=== PATIENT | male | born 1975 | race African-American/Black ===

== ENCOUNTER 2020-01-16 15:46 | Emergency (ER) | payer OTHER, SELFPAY ==
[2020-01-16 15:59] VITALS: BP 122/73; PULSE 71; RESP 16; TEMP 37.3; O2SAT 100
--- NOTE | 2020-01-16 16:01 | ED.GENADULT ---
HPI - General Adult General Chief complaint: Wound/Laceration Stated complaint: Staple removal Time Seen by Provider: 01/16/20 16:03 History of Present Illness HPI narrative: 44-year-old male presents with concern for staple removal. Reports 1 week ago he had prisca placed in his forehead nursing that she [facility]. Reports routine healing, denies drainage, swelling, pain, redness. Denies headache MD complaint: Staple removal Related Data Home Medications Medication Instructions Recorded Confirmed naproxen 01/16/20 Allergies Allergy/AdvReac Type Severity Reaction Status Date / Time No Known Allergies Allergy Unverified 06/03/15 12:18 Review of Systems Review of Systems: Narrative: CONSTITUTIONAL: Denies malaise, chills, sweats, or fever. SKIN: Reports healing laceration with intact prisca to forehead. Denies redness, swelling, pain, drainage NEUROLOGIC: Denies headache. [facility] Family History Family History (Updated 05/31/15 @ 10:21 by DOCTOR UNKNOWN) Other Diabetes mellitus Social History Social History Smoking status: Never smoker Alcohol intake: current Exam Narrative: Exam Narrative: GENERAL: Well-appearing, well-nourished, and in no acute distress. HEAD: Normocephalic EYES: PERRLA, conjunctivae clear ENT: Mucous membranes moist. NECK: Supple. CHEST: No respiratory distress. Speaks in full sentences. HEART: Regular rate and rhythm. SKIN: Warm, dry, no rash. Well approximated healing laceration noted to the mid forehead with no surrounding induration, erythema, edema, 6 intact prisca noted. NEURO: Alert and oriented x3. PSYCH: Normal mood and affect Course Vital Signs Vital signs: Vital Signs Temperature 99.1 F 01/16/20 15:59 Pulse Rate 71 01/16/20 15:59 Respiratory Rate 16 01/16/20 15:59 Blood Pressure 122/73 01/16/20 15:59 Pulse Oximetry 100 01/16/20 15:59 Temperature 99.1 F 01/16/20 15:59 Pulse Rate 71 01/16/20 15:59 Respiratory Rate 16 01/16/20 15:59 Blood Pressure 122/73 01/16/20 15:59 Pulse Oximetry 100 01/16/20 15:59 Medical Decision Making MDM Narrative Medical decision making narrative: Verbal consent was obtained. Wound well approximated, no erythema, induration, or discharge noted. Sick prisca completely removed in a sterile fashion. Patient tolerated procedure well, no complications. Patient advised to look for and return for any signs of infection such as redness, swelling, discharge, or worsening pain. Antibiotic ointment applied Vital Signs Vital Signs: Vital Signs Temperature 99.1 F 01/16/20 15:59 Pulse Rate 71 01/16/20 15:59 Respiratory Rate 16 01/16/20 15:59 Blood Pressure 122/73 01/16/20 15:59 Pulse Oximetry 100 01/16/20 15:59 Temperature 99.1 F 01/16/20 15:59 Pulse Rate 71 01/16/20 15:59 Respiratory Rate 16 01/16/20 15:59 Blood Pressure 122/73 01/16/20 15:59 Pulse Oximetry 100 01/16/20 15:59 Discharge Plan Discharge Clinical Impression: Encounter for staple removal Patient Disposition: Home, Self-Care Condition: Stable Additional Instructions: AFTER the prisca are removed: Clean your wound as directed. Carefully wash your wound with soap and water. Pat the area dry with a clean towel. Protect your wound. Your wound can swell, bleed, or split open if it is stretched or bumped. You may need to wear a bandage that supports your wound until it is completely healed. How to minimize a scar: After sutures are removed, keep your scar out of the sun. Use sunblock if your wound is exposed to the sun. You may use OTC silicone pad and/or scar massage with ointment (for 10-15 min a day) after one month. Talk to your doctor if you think you aredeveloping a keloid. Prescriptions: No Action naproxen 500 mg tablet RF: 0 Follow-up/Referrals: PHYSICIAN,BODY DESIGN CHECKER [Primary Care Provider] - Time of Disposition: 16:05
== END 2020-01-16 16:06 | disposition home or self-care (01) ==
PROVIDERS: Emergency Provider Nurse Practitioner
DX: S01.81XD Laceration without foreign body of other part of head, subsequent encounter (principal); X58.XXXD Exposure to other specified factors, subsequent encounter
CPT/HCPCS: 99211; G0463

== ENCOUNTER 2020-09-06 18:49 | Emergency (ER) | payer OTHER, SELFPAY ==
[2020-09-06 19:00] VITALS: BP 133/89; PULSE 65; RESP 16; TEMP 36.8; O2SAT 99
--- NOTE | 2020-09-06 19:06 | ED.SKABFB ---
HPI - Skin/Abscess/Foreign Bdy General Chief complaint: Skin/Abscess/Foreign Body Stated complaint: Cyst on back of head Time Seen by Provider: 09/06/20 19:06 Source: patient and RN notes reviewed Mode of arrival: ambulatory History of Present Illness HPI narrative: 45-year-old male presents to the [facility] with complaints of a cyst to the posterior head. Patient reports getting his haircut for the first time in many years and noted he had this growth on the back of his head. It is painless. No redness or tenderness. No signs of infection. Hair growth is normal on the growth. Related Data Home Medications Medication Instructions Recorded Confirmed No Home Medications 09/06/20 09/06/20 Allergies Allergy/AdvReac Type Severity Reaction Status Date / Time No Known Allergies Allergy Verified 09/06/20 19:13 Review of Systems Review of Systems: Narrative: CONSTITUTIONAL: Denies fever, chills, or sweats. EYES: Denies visual changes, redness, or discharge. ENT: Denies rhinorrhea, congestion, sore throat, or otalgia. CARDIOVASCULAR: Denies chest pain, palpitations, or edema. RESPIRATORY: Denies cough or dyspnea. GASTROINTESTINAL: Denies abdominal pain, nausea, vomiting, or diarrhea. GENITOURINARY: Denies dysuria or hematuria. SKIN: Denies rash or itching. Growth posterior head MUSCULOSKELETAL: Denies back pain, joint pain, or myalgia. NEUROLOGIC: Denies headache, numbness, or weakness. PSYCHIATRIC: Denies anxiety or depression. All other systems reviewed are negative, except as documented in HPI. PMFSH Family History Family History Other Diabetes mellitus Social History Social History Smoking status: Never smoker Alcohol intake: current Comments At the time of my signature, I reviewed and agree with the nursing past medical, surgical, social, and family history. There is no relevant family history pertinent to the patient complaint. Exam Narrative: Exam Narrative: GENERAL: This is a well-nourished, well-developed patient, in no apparent distress. HEAD: normocephalic, atraumatic. EYES: PERRL. EARS: External ears normal CARDIOVASCULAR: Regular rate and rhythm without murmurs, gallops, or rubs. RESPIRATORY: Clear to auscultation. Breath sounds equal bilaterally. No wheezes, rales, or rhonchi. GASTROINTESTINAL: Abdomen soft, non-tender SKIN: warm, intact with no suspicious lesions or rash, good texture and turgor. Growth without signs of infection measuring 5 x 5-1/2 cm. NEURO: awake, alert, and oriented to person, place and time. There were no obvious focal neurologic abnormalities. EXTREMITIES:No joint tenderness, effusion, or edema noted. BACK: Nontender without deformity Course Course Emergency Course: Discussed with patient that this is probably a lipoma. Patient wants to make sure there is no pus in it. Agreed to try a needle aspiration. Area cleaned with Betadine and 18-gauge needle attempted needle aspiration with nothing that returned. No signs of infection. Vital Signs Vital signs: Vital Signs Temperature 98.2 F 09/06/20 19:00 Pulse Rate 65 09/06/20 19:00 Respiratory Rate 16 09/06/20 19:00 Blood Pressure 133/89 09/06/20 19:00 Pulse Oximetry 99 09/06/20 19:00 Temperature 98.2 F 09/06/20 19:00 Pulse Rate 65 09/06/20 19:00 Respiratory Rate 16 09/06/20 19:00 Blood Pressure 133/89 09/06/20 19:00 Pulse Oximetry 99 09/06/20 19:00 Reviewed MDM - Skin/Abscess/Foreign Bdy Differential Diagnosis Differential diagnosis: Likely abscess of skin or subcutaneous tissue, viral exanthem, cellulitis and other (Lipoma) Critical Care Time Critical Care Time Critical Care Time: No Discharge Plan Discharge Clinical Impression: Lipoma Qualifiers: Lipoma location: head Qualified Code(s): D17.0 - Benign lipomatous neoplasm of skin and subcutaneous tissue of head, face
== END 2020-09-06 19:30 | disposition home or self-care (01) ==
PROVIDERS: Emergency Provider Nurse Practitioner; PCP Emergency Medicine
DX: D17.0 Benign lipomatous neoplasm of skin and subcutaneous tissue of head, face and neck (principal)
CPT/HCPCS: 99211; G0463

== ENCOUNTER → 2020-10-01 05:10 | Outpatient (CLI) | payer OTHER, SELFPAY ==
[2020-10-01 19:22] LABS: SARS-CoV-2 RNA PCR Negative
== END ==
PROVIDERS: PCP Emergency Medicine; Visit Provider Surgery
DX: Z01.812 Encounter for preprocedural laboratory examination (principal); Z20.822 Contact with and (suspected) exposure to COVID-19
CPT/HCPCS: C9803; U0003; U0005

== ENCOUNTER 2020-10-04 01:04 | Day surgery (SDC) | payer OTHER, SELFPAY ==
[2020-09-23 09:24] VITALS: BMI 22.3
[2020-10-04] MEDS: LACTATED RINGERS 1,000 ML 30 ML IV CONT (11:30)
[2020-10-04 11:40] VITALS: BP 117/74; PULSE 72; RESP 18; TEMP 36.7; O2SAT 98
--- NOTE | 2020-10-04 12:40 | WPDHPUPDATE1 ---
History and Physical Update Update Date/Time: 10/04/20 12:40 History and Physical has been reviewed, including an updated exam of the patient. There are NO changes in the patient's condition. Risks, benefits, and alternatives have been discussed and questions answered. Patient agrees to proceed with procedure.
--- NOTE | 2020-10-04 13:03 | WPDANESEPPF ---
Anes - Initial Pre Proc Eval Procedure: Operation Date: 10/04/20 13:00 Proposed Procedures p Excisional Biopsy Right Posterior Scalp Mass - Sherin eBrg MD Date/Time: 10/04/20 13:03 Surgeon: Sherin Berg MD Pre Op Diagnosis: right posterior scalp mass Patient Data Age: 45 Gender: M Height: 5 ft 11 in Weight: 69.8 kg Allergies Allergy/AdvReac Type Severity Reaction Status Date / Time No Known Allergies Allergy Verified 09/23/20 09:22 Home Medications Medication Instructions Recorded Confirmed Type No Home Medications 09/06/20 10/04/20 History Patient hx anesthesia problems: none Family hx anesthesia problems: none PMFSH Surgical History Surgical History History of surgical removal of skin lesion thigh Family History Family History Other Diabetes mellitus Social History Social History Smoking status: Never smoker Second hand tobacco smoke exposure: No Alcohol intake: former Substance use: never Living arrangements: alone 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 Questions were solicited and answers provided to the satisfaction of the patient/family/POA.
[2020-10-04] MEDS: ceFAZolin 2 GM/D5W 50 ML 2 GM/50 ML BAG IVPB (14:08)
--- NOTE | 2020-10-04 14:10 | SUR.PREOP ---
1355 PT UPDATED ABOUT SURGERY TIME DELAY
[2020-10-04] MEDS: BUPIVACAINE/EPINEPHRINE 0.5% 30 ML VIAL 20 ML INFILTRATE (14:28)
--- NOTE | 2020-10-04 14:51 | P.OP_ITS ---
Procedure Note - Detailed Date of procedure: 10/04/20 Pre-op diagnosis: right posterior scalp mass Post-op diagnosis: same Procedure performed: Excisional biopsy right posterior scalp subcutaneous mass measuring approximately 3 and half by 2 cm Description of procedure: The patient was taken to the operating room and placed in the lateral position. After adequate induction of mac anesthesia, the patient was prepped and draped in the normal sterile fashion. A time-out was then done to verify the patient's identity, as well as the procedure being performed. I began by localizing the area in and around this mass in the right posterior scalp. Once this area was locally anesthetized, I made an incision over the mass. This incision was carried down into the subcutaneous tissue. At this point I was able to locate the mass, which appeared to be a well circumscribed lipoma. I was able to use a hemostat to bluntly dissect around this mass. Once fully mobilized, I was able to removed this mass in full. The mass will be sent to pathology for further review and measured approximately 3- 1/2 by 2 cm. I then gained hemostasis with the Bovie cautery and the wound was washed out. I then closed the subcutaneous tissue with 3 0 Vicryl suture. The skin was closed with 4 O Monocryl subcuticular suture. Dermabond was then placed on the wound. The patient tolerated the procedure well and was alert and awake in the operating room postoperative. He will be transferred to the recovery room in stable condition. Anesthesia: MAC and local Surgeon: Sherin Berg MD Estimated blood loss (mL): 20 Drains: No Packing: No Pathology: yes Complications: No immediate complications Condition: stable Disposition: PACU Findings: Three and half by 2 cm right posterior scalp subcutaneous mass
[2020-10-04 14:55] VITALS: BP 103/62; PULSE 72; RESP 14; O2SAT 100
[2020-10-04 15:25] VITALS: BP 102/66; PULSE 67; RESP 14; O2SAT 100
[2020-10-04 15:50] VITALS: BP 105/65; PULSE 64; RESP 14
== END 2020-10-04 16:00 | disposition home or self-care (01) ==
PROVIDERS: PCP Emergency Medicine; Visit Provider Surgery
PROC: (CPT 21012; principal; 2020-10-04 13:00)
DX: D17.0 Benign lipomatous neoplasm of skin and subcutaneous tissue of head, face and neck (principal)
CPT/HCPCS: 21012; 88304; A9270; C9803; J0690; J2250; J2704; J3010; J7120; U0003; U0005

== ENCOUNTER 2021-03-14 16:46 | Emergency (ER) | payer OTHER, SELFPAY ==
--- NOTE | ~2021-03-14 | XR_ITS ---
XR finger 2nd RT min 2V DATE: 03/14/2021 17:11 INDICATION: Smashed second digit distally. Pain. TECHNIQUE: 4 views COMPARISON: None FINDINGS: No fracture or dislocation, periosteal reaction or bone destruction, radiopaque soft tissue foreign body or subcutaneous emphysema. IMPRESSION: Negative Reviewed, dictated and finalized at location A. IMPRESSION: Negative
[2021-03-14 16:58] VITALS: BP 121/94; PULSE 70; RESP 16; TEMP 36.8; O2SAT 100
--- NOTE | 2021-03-14 17:44 | ED.UPPEXIN ---
HPI - Extremity Injury (Upper) General Chief Complaint: Extremity Injury, Upper Stated Complaint: Finger Pain Time Seen by Provider: 03/14/21 17:45 Source: patient and RN notes reviewed Mode of arrival: ambulatory Limitations: no limitations History of Present Illness HPI narrative: 45-year-old male presents with concern for pain, swelling to the distal second digit of the right hand. Reports over a week ago he smashed the finger in a car door. He reports pain and swelling persist. He denies decreased strength, sensation, range of motion. Denies drainage. Denies intervention. MD complaint: injury to: right and finger Related Data Allergies Allergy/AdvReac Type Severity Reaction Status Date / Time No Known Allergies Allergy Verified 09/23/20 09:22 Review of Systems Review of Systems: CONSTITUTIONAL: Denies malaise, chills, sweats, or fever. SKIN: Reports swelling, pain beneath the nailbed of the second edge of the right hand. Denies lacerations, abrasions, open skin MUSCULOSKELETAL: Reports pain, swelling to the distal second digit of the right hand NEUROLOGIC: Denies numbness, weakness All systems reviewed & are unremarkable except as noted in HPI and below PMFSH Surgical History Surgical History H/O excision of mass Excisional biopsy right posterior scalp subcutaneous mass measuring approximately 3 and half by 2 cm History of surgical removal of skin lesion thigh Family History Family History Other Diabetes mellitus Social History Social History Smoking status: Never smoker Second hand tobacco smoke exposure: No Alcohol intake: former Substance use: never 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 There is no relevant family history pertinent to the presenting complaint Exam Narrative: GENERAL: Well-appearing, well-nourished, and in no acute distress. HEAD: Normocephalic, atraumatic. EYES: PERRLA, conjunctivae clear ENT: Mucous membranes moist NECK: Supple. No lymphadenopathy CHEST: Clear to auscultation. No respiratory distress. HEART: Regular rate and rhythm. Musculoskeletal: Pain, swelling to the distal second digit of the right hand, cap refill less than 3 seconds. Grossly normal strength, sensation, range of motion to the digit. No circumferential edema SKIN: Warm, dry. Erythema, edema without fluctuation noted to the base of the nailbed of the second digit of the right hand, right white color noted under the right first digit nailbed. NEURO: Alert and oriented x3. PSYCH: Normal mood and affect Course Course Emergency Course: Patient is aware of diagnosis, understands and agrees to treatment plan. Anticipatory guidance given. Patient agrees to follow-up as directed and is aware of reasons to seek care at the emergency department. Portions of this record may have been created with voice recognition software Vital Signs Vital signs: Vital Signs Temperature 98.2 F 03/14/21 16:58 Pulse Rate 70 03/14/21 16:58 Respiratory Rate 16 03/14/21 16:58 Blood Pressure 121/94 H 03/14/21 16:58 Pulse Oximetry 100 03/14/21 16:58 Temperature 98.2 F 03/14/21 16:58 Pulse Rate 70 03/14/21 16:58 Respiratory Rate 16 03/14/21 16:58 Blood Pressure 121/94 H 03/14/21 16:58 Pulse Oximetry 100 03/14/21 16:58 Reviewed. Procedures Nail Trephination Nail Trephination #1: Nail Trephination Date: 03/14/21 Nail Trephination Time: 17:58 Time out: Yes Location (finger): right and index Sterile prep: chlorhexidine Method of drainage: nail cautery Procedure successf
== END 2021-03-14 18:08 | disposition home or self-care (01) ==
PROVIDERS: Emergency Provider Nurse Practitioner; PCP Emergency Medicine
DX: L03.011 Cellulitis of right finger (principal)
CPT/HCPCS: 11740; 73140; 87070; 87075; 87205; 99213; G0463

== ENCOUNTER 2023-06-23 12:28 | Emergency (ER) | payer OTHER, SELFPAY ==
[2023-06-23] VITALS (36 sets, daily range): BP systolic 109–130; BP diastolic 76–95; PULSE 73–107; RESP 12–29; TEMP 36.4–37.2; O2SAT 96–100
--- NOTE | ~2023-06-23 | XR_ITS ---
XR ankle LT min 3V 06/23/2023 16:49 Indication: Evaluate fracture post reduction. Procedure: 3 views left ankle Comparison: 06/23/2023 Findings: There is improved alignment of oblique distal fibular fracture with dorsal displacement. No significant angulation. There is improved alignment of the tibia and talus with persistent lateral s ubluxation of the talus. Moderate lateral soft tissue swelling. Impression: 1: Improved alignment of oblique distal fibular fracture and tibiotalar subluxation post reduction. Reviewed, dictated and finalized at location A. R HELPER Impression: 1: Improved alignment of oblique distal fibular fracture and tibiotalar subluxa tion post reduction.
--- NOTE | ~2023-06-23 | XR_ITS ---
XR ankle LT 2V DATE: 06/23/2023 12:49 INDICATION: Injury, left ankle deformity TECHNIQUE: 2 views COMPARISON: None FINDINGS: There is linear oblique fracture through the lateral malleolus with posterior and lateral d isplacement, apex medial angulation. There is lateral dislocation at the tibiotalar joint. No other definite fracture is noted. IMPRESSION: Lateral malleolar fracture and lateral tibiotalar dislocation Reviewed, dictated and finalized at location A. TIC WELD TECHNICIAN
--- NOTE | 2023-06-23 15:33 | ED.LOWEXIN ---
HPI - Extremity Injury (Lower) General Chief Complaint: Extremity Injury, Lower <IZAIAH Bennett Last Filed: 06/23/23 18:01> Stated Complaint: left ankle pain <IZAIAH Bennett Last Filed: 06/23/23 18:01> Time Seen by Provider: 06/23/23 15:17 <IZAIAH Bennett Last Filed: 06/23/23 18:01> Source: patient <IZAIAH Bennett Last Filed: 06/23/23 18:01> Mode of arrival: ambulatory <IZAIAH Bennett Last Filed: 06/23/23 18:01> Limitations: no limitations <IZAIAH Bennett Last Filed: 06/23/23 18:01> History of Present Illness HPI Narrative: Patient is a 48 y/o male who presents to the ED with c/o L ankle pain. patient reports he had been drinking last night and tripped walking up the stairs. He states he missed a step and twisted his left ankle. Complains of pain and swelling to his left ankle, unable to bear weight. Denies any numbness or tingling. No other injuries. No head injury or LOC. <IZAIAH Bennett Last Filed: 06/23/23 18:01> Related Data Allergies/Adverse Reactions: Allergies Allergy/AdvReac Type Severity Reaction Status Date / Time No Known Allergies Allergy Verified 09/23/20 09:22 <IZAIAH Bennett Last Filed: 06/23/23 18:01> Review of Systems Review of Systems: CONSTITUTIONAL: Denies fever, chills, or sweats. MUSCULOSKELETAL: See HPI NEUROLOGIC: Denies tingling, numbness, or weakness. <IZAIAH Bennett Last Filed: 06/23/23 18:01> All systems reviewed & are unremarkable except as noted in HPI and below <IZAIAH Bennett Last Filed: 06/23/23 18:01> [facility] Surgical History Surgical History: Surgical History H/O excision of mass Excisional biopsy right posterior scalp subcutaneous mass measuring approximately 3 and half by 2 cm History of surgical removal of skin lesion thigh <Rose York PA-C - Last Filed: 06/23/23 18:01> Family History Family History: Family History Other Diabetes mellitus <Rose York PA-C - Last Filed: 06/23/23 18:01> Social History Social History: Social History Smoking status: Never smoker Second hand tobacco smoke exposure: No Alcohol intake: former Substance use: never Living arrangements: alone Occupation/Education: occupation 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 HEAD: Normocephalic, atraumatic. RESPIRATORY: Airway patent, respirations nonlabored. CARDIOVASCULAR: Regular rate and rhythm without murmurs, rubs, or gallops. DP pulses 2+ on left. MUSCULOSKELETAL: Lateral dislocation deformity of left ankle. Protrusion of medial malleoli subcutaneously, small area of ecchymosis and almost skin blistering overlying medial malleoli. Significant TTP throughout L ankle joint. Moderate swelling noted. Sensation intact. Patient able to wiggle toes. SKIN: Warm, dry, normal color. NEURO: A&O X3. Speech clear. Cranial nerves II-XII grossly intact. No ataxic movements. PSYCHIATRIC: Appropriate mood and affect. Normal interaction. <Rose York PA-C - Last Filed: 06/23/23 18:01> Course Vital Signs Vital signs: Vital Signs Temperature 98.5 F 06/23/23 12:29 Pulse Rate 107 H 06/23/23 12:29 Respiratory Rate 18 06/23/23 12:29 Blood Pressure 125/78 06/23/23 12:29 Pulse Oximetry 98 06/23/23 12:29 Oxygen Delivery Room Air 06/23/23 12:29 Temperature 97.6 F 06/23/23 17:21 Pu
[2023-06-23] MEDS: SODIUM CHLORIDE 0.9% IV 1,000 ML 999 ML IV CONT (15:42)
[2023-06-23] MEDS: HYDROmorphone HCL INJ (*CRX) 1 MG/ML SYR IV PUSH ×2 (15:42→18:17)
[2023-06-23] MEDS: ONDANSETRON INJ 4 MG/2 ML VIAL IV PUSH (15:42)
[2023-06-23] MEDS: PROPOFOL IV EMULSION 200 MG/20 ML VIAL 100 MG IV PUSH (16:32)
--- NOTE | 2023-06-23 16:42 | PC.NURSE ---
propofol administered by Dr. Flor @1385, no further doses needed.
--- NOTE | 2023-06-23 18:14 | PC.NURSE ---
called report to TENA Jimenez @[id number]. all questions answered.
== END 2023-06-23 18:37 | disposition short-term general hospital (02) ==
PROVIDERS: Emergency Provider Physician Assistant; PCP Emergency Medicine
DX: S82.62XA Displaced fracture of lateral malleolus of left fibula, initial encounter for closed fracture (principal); S93.05XA Dislocation of left ankle joint, initial encounter; W10.8XXA Fall (on) (from) other stairs and steps, initial encounter
CPT/HCPCS: 27786; 73600; 73610; 96374; 96375; 96376; 99285; J1170; J2405; J2704; J7030

== ENCOUNTER 2025-05-06 01:23 | Day surgery (SDC) | payer OTHER, SELFPAY ==
[2025-04-24 10:41] VITALS: BMI 24.5
--- OUTSIDE RECORDS SUMMARY | 2025-05-06 01:26 | XMS_ITS | Clinical Summary ---
Author Organization [facility] [employer] Address [address] 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 This disclosure is being madepursuant to the Care Everywhere program and may not contain all information available regarding this patient. Last updated 18.[facility] [employer] Allergies No known active allergies Medications * Be aware that medications may not be up to date on this document. Alwaysverify current medications with the patient. ascorbic acid (Vitamin C) 500 MG tablet Take 1 (one) tablet by mouth once daily 30 tablet 07/03/2023 Active Active Problems No known active problems Social History Tobacco Use Types Packs/Day Years Used Date Smoking Tobacco: Never Smokeless Tobacco: Never Tobacco Cessation:Counseling Given: Not Answered Alcohol Use Standard Drinks/Week Comments Yes 0 (1 standard drink = 0.6 oz pur e alcohol) social PHQ-2 Answer Date Recorded Patient Health Questionnaire-2 Score 0 09/19/2023 Sex and Gender Information Value Date Recorded Sex Assigned at Not on file Legal Sex Male 2:23 AM CDT Gender Identity Not on file Sexual Orientation Not on file Last Filed Vital Signs Vital Sign Reading Time Taken Comments Blood Pressure 119/86 07/03/2023 11:30 AM [employer] Pulse 78 07/03/2023 11:30 AM [employer] Temperature 36.6 C (97.8 F) 07/03/2023 10:15 AM [employer] Respiratory Rate 13 07/03/2023 11:30 AM [employer] Oxygen Saturation 95% 07/03/2023 11:30 AM [employer] Inhaled Oxygen Concentration - - Weight 69.4 kg (153 lb) 10/17/2023 12:42 PM CDT Height 180.3 cm (5' 11) 10/17/2023 12:42 PM CDT Body Mass Index 21.34 10/17/2023 12:42 PM CDT Plan of Treatment Health Maintenance Due Date Last Done Comments COLOGUARD (AGES 45-75) - COL ON CA SCREENING 1976 COLON MONITORING 1976 COLONOSCOPY - COLON CA SCREENING 1976 CT COLONOGRAPHY - COLON CA SCREENING 1976 Colorectal Cancer Screening 1976 FIT - COLON CA SCREENING 1976 FLEX SIG - COLON CA SCREENING 1976 LIPID TESTING 1976 HIV SCREENING 1991 HEPATITIS C SCREENING 05/15/1994 DTAP/TDAP/TD VACCINES (1 - Tdap) 1995 HEPATITIS B VACCINE (1 of 3 - 19+ 3-dose series) 1995 DEPRESSION SCREENING 07/02/2024 08/22/2023, 06/27/2023 COVID-19 VACCINE (4 - 2024-2 6 season) 2025 08/03/2021, 02/03/2021, 01/13/2021 INFLUENZA VACCINE (#1) 2025 ZOSTER VACCINE (1 of 2) 2026 HIB VACCINE Aged Out No longer eligi ble based on patient's age to complete this topic HPV VACCINE Aged Out No longer eligi ble based on patient's age to complete this topic MENINGOCOCCAL (Group B) VACCINE SHARED DECISION-MAKING Aged Out No longer eligible based on patient's age to complete this topic MENINGOCOCCAL GROUPS A/C/Y/W VACCINE Aged Out No longer eligible b ased on patient's age to complete this topic PNEUMOCOCCAL VACCINE Aged Out No long er eligible based on patient's age to complete this topic Medical Devices Implanted Type Area Platform Consultant Device Identifier Shelf Expiration Date Model / Serial / Lot Wshr Evos Orth 3.5 Mm Screw Strl Implanted:Qty: 2 on 07/03/2023 by Dirk Soto MD at [facility] Left: Ankle [employer] [id number] / / Plate Implanted:Qty: 1 on 07/03/2023 by Dirk Soto MD at [facility] Left: Ankle [employer] [id number] / / Screw 2.7mm 4.5mm 20mm T7 Slfret Scrdrvr Implanted:Qty: 2 on 07/03/2023 by Dirk Soto MD at [facility] Left: Ankle [employer] [id number] / / Screw 2.7mm 4.5mm 24mm T7 Slfret Scrdrvr Implanted:Qty: 1 on 07/03/2023 by Dirk Soto MD at [facility] Left: Ankle [employer] [id number] / / Screw 3.5mm 12mm Slf-Tap Cortx Evos Strl Implanted:Qty: 2 on 07/03/2023 by Dirk Soto MD at [facility] Left: Ankle [employer] [id number] / / Screw 3.5mm 16mm Slf-Tap Cortx Evos Strl Implanted:Qty: 1 on 07/03/2023 by Dirk Soto MD at [facility] Left: Ankle [employer] [id number] / / Screw 3.5mm 60mm Slf-Tap Cortx Evos Strl Implanted:Qty: 1 on 07/03/2023 by Dirk Soto MD at [facility] Left: Ankle [employer] [id number] / / Explanted Type Area Platform Consultant Device Identifier Shelf Expiration Date Model / Serial / Lot Wire K 1.6mm 150mm Troc Pnt Ss Fx Strl Explanted:Qty: 2 on 07/03/2023 by Dirk Soto MD at [facility] Left: Ankle [employer] [id number] / / Screw 3.5mm 13mm Slf-Tap Cortx Evos Strl Explanted:Qty: 1 on 07/03/2023 by Dirk Soto MD at [facility] Left: Ankle [employer] [id number] / / Screw 3.5mm 15mm Slf-Tap Cortx Evos Strl Explanted:Qty: 1 on 07/03/2023 by Dirk Soto MD at [facility] Left: Ankle [employer] [id number] / / Insurance [facility] [employer] Care Teams 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
[2025-05-06 11:35] VITALS: BP 120/83; PULSE 70; RESP 19; TEMP 37.1; O2SAT 100
[2025-05-06] MEDS: LACTATED RINGERS 1,000 ML 150 ML IV CONT (11:40)
--- NOTE | 2025-05-06 13:01 | P.PNAN_ITS ---
Anes - Initial Pre Proc Eval Procedure: Operation Date: 05/06/25 12:30 Proposed Procedures p Screening Colonoscopy - Maximino Lala MD Date/Time: 05/06/25 13:01 Surgeon: Maximino Lala MD Pre Op Diagnosis: Screening Patient Data Age: 49 Gender: M Height: 1.78 m Weight: 71.9 kg Last Vital Signs Temp 37.1 C 05/06/25 11:35 Pulse 70 05/06/25 11:35 Resp 19 05/06/25 11:35 BP 120/83 05/06/25 11:35 Pulse Ox 100 05/06/25 11:35 O2 Del Method Room Air 05/06/25 11:35 Allergies Allergy/AdvReac Type Severity Reaction Status Date / Time No Known Allergies Allergy Verified 05/06/25 11:32 Home Medications ?Medication ?Instructions ?Recorded ?Confirmed ?Type No Home Medications 03/25/25 04/24/25 H istory Patient hx anesthesia problems: none Family hx anesthesia problems: none Results Review: All pre-operative results and documents have been reviewed as part of the pre- operative evaluation. [facility] Past Medical History Medical History (Updated 03/25/25 @ 14:28 by Janette Singer APRN) History of fracture of left ankle 2023 ORIF Surgical History Surgical History H/O excision of mass Excisional biopsy right posterior scalp subcutaneous mass measuring approximately 3 and half by 2 cm History of surgical removal of skin lesion thigh Family History Family History (Updated 03/25/25 @ 14:25 by Janette Singer APRN) Mother Hypertension Lymphoma Other Diabetes mellitus Social History Social History Smoking status: Never smoker Second hand tobacco smoke exposure: No Alcohol intake: former Substance use: never Substance use type: does not use Living arrangements: alone Occupation/Education: occupation 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 Informed Consent: The patient's anesthetic plan and its attendant risks and benefits were discussed with the patient/family/POA. Questions were solicited and answers provided to the satisfaction of the patient/family/POA.
--- NOTE | 2025-05-06 13:22 | PM.IMHP ---
H&P: HPI History of Present Illness Date/Time: 05/06/25 13:22 Chief Complaint: Screening colonoscopy Narrative: This is the patient's first colonoscopy. There are no GI symptoms and there is no family history of colorectal cancer. Review of Systems Review of Systems: All systems reviewed & are unremarkable except as noted in HPI and below [facility] Past Medical History Medical History (Updated 03/25/25 @ 14:28 by Janette Singer APRN) History of fracture of left ankle 2023 ORIF Surgical History Surgical History H/O excision of mass Excisional biopsy right posterior scalp subcutaneous mass measuring approximately 3 and half by 2 cm History of surgical removal of skin lesion thigh Family History Family History (Updated 03/25/25 @ 14:25 by Janette Singer APRN) Mother Hypertension Lymphoma Other Diabetes mellitus Social History Social History Smoking status: Never smoker Second hand tobacco smoke exposure: No Alcohol intake: former Substance use: never Substance use type: does not use Living arrangements: alone Occupation/Education: occupation 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 Gender identity (if verbalized by the patient): Male Spiritual care concerns: No Meds Home Medications and Allergies Home Medications ?Medication ?Instructions ?Recorded ?Confirmed ?Type No Home Medications 03/25/25 04/24/25 History Allergies Allergy/AdvReac Type Severity Reaction Status Date / Time No Known Allergies Allergy Verified 05/06/25 11:32 Vital Signs Vital Signs - 24 hr 05/06/25 11:35 Temperature 98.7 F Pulse Rate 70 Respiratory Rate 19 Blood Pressure 120/83 Pulse Oximetry 100 Oxygen Delivery Room Air Exam Const: General: cooperative and healthy appearing Resp: Effort & Inspection: normal respiratory effort and able to speak in complete sentences Auscultation: clear to auscultation bilaterally Cardio: Rate: regular rate Rhythm: regular rhythm GI: Inspection: normal to inspection GI Palp: No No hepatosplenomegaly present Auscultation: normal bowel sounds Rectal Exam: deferred Skin: General skin exam: normal color Psych: Appearance: grossly normal Mental Status: mental status grossly normal Assessment and Plan Assessment and plan (1) Colon cancer screening: Code(s): Z12.11 - Encounter for screening for malignant neoplasm of colon Status: Acute Assessment and Plan: The patient is deemed a good candidate for the procedure. Consent signed. Will proceed.
[2025-05-06 13:39] VITALS: BP 92/63; PULSE 72; RESP 14; O2SAT 98
[2025-05-06 13:49] VITALS: BP 118/78; PULSE 59; RESP 16; O2SAT 100
[2025-05-06 13:59] VITALS: BP 125/83; PULSE 65; RESP 18; O2SAT 100
== END 2025-05-06 14:06 | disposition home or self-care (01) ==
PROVIDERS: PCP Nurse Practitioner Family; Referring Provider Nurse Practitioner Family; Visit Provider Internal Medicine Gastroenterology
PROC: 0DJD8ZZ Inspection of Lower Intestinal Tract, Via Natural or Artificial Opening Endoscopic (ICD-10-PCS; CPT 45378; principal; 2025-05-06 12:30)
DX: Z12.11 Encounter for screening for malignant neoplasm of colon (principal); Z98.890 Other specified postprocedural states; Z80.7 Family history of other malignant neoplasms of lymphoid, hematopoietic and related tissues
CPT/HCPCS: 45378; J2704; J7120